=== PATIENT | female | born 1965 | race Caucasian/White ===

== ENCOUNTER 2019-08-26 17:48 | Inpatient (IN) ==
[2019-08-26] MEDS ORDERED: Acetaminophen 325 MG TABLET PO PRN (22:01)
[2019-08-26] MEDS ORDERED: Ondansetron 4 MG/2 ML VIAL IVP PRN (22:01)
[2019-08-26] MEDS ORDERED: Naloxone 0.4 MG/ML INJ IVP PRN (22:01)
[2019-08-26] MEDS ORDERED: Nicotine 14 MG PATCH.TD24 TD PRN (22:16)
[2019-08-26] MEDS: *HR* HYDROcodone/Acet 5/325 mg TABLET PO PRN (22:23)
[2019-08-26] MEDS: *HR* Heparin 5,000 UNIT/ML VIAL SQ SCH (22:26)
[2019-08-26] MEDS ORDERED: *HR* Heparin 5,000 UNIT/ML VIAL SQ SCH (22:26)
[2019-08-27] MEDS ORDERED: 0.9 % Sodium Chloride 1,000 ML IVC SCH (00:05)
[2019-08-27 02:28] LABS: Basophils % 0.4 %; Eosinophils # 0.2 K/mcL (0.0-0.6); Eosinophils % 2.5 %; Hematocrit 36.2 % (35.3-44.9); Hemoglobin 11.8 g/dL (11.5-15.4); Immature Granulocytes % 0.3 % (0-4); Lymphocytes # 3.4 K/mcL (0.6-4.6); Lymphocytes % 49.6 %; Mean Corpuscular HGB Conc 32.6 g/dL (31.6-35.5); Mean Corpuscular Hemoglobin 31.1 pg (28.0-33.3); Mean Corpuscular Volume 95.5 fL (83.0-100.0); Mean Platelet Volume 9.1 fL (9.4-12.4); Monocytes # 0.7 K/mcL (0.0-1.3); Neutrophils # 2.6 K/mcL (1.6-8.9); Platelet Count 365 K/mcL (140-400); Red Blood Count 3.79 M/mcL (3.82-4.97); Red Cell Distribution Width 12.2 % (11.5-14.5); Segmented Neutrophils % 37.2 %; White Blood Count 6.9 K/mcL (4.3-11.1)
[2019-08-27 02:48] LABS: Albumin 3.6 g/dL (3.5-5.7); Albumin/Globulin Ratio 1.6 (1.1-2.2); Bilirubin,Total 0.3 mg/dL (0.3-1.0); Calcium 8.8 mg/dL (8.6-10.3); Globulin 2.2 g/dL (2.4-3.5); Magnesium 1.9 mg/dL (1.6-2.6); Potassium 4.2 mEq/L (3.5-5.1); Total Protein 5.8 g/dL (6.4-8.9)
[2019-08-27] MEDS ORDERED: *HR* Heparin 5,000 UNIT/ML VIAL SQ SCH (06:00)
[2019-08-27] MEDS: *HR* HYDROcodone/Acet 5/325 mg TABLET PO PRN ×2 (06:40→19:57)
[2019-08-27] MEDS ORDERED: VILAZODONE HCL PO SCH (09:00)
[2019-08-27] MEDS ORDERED: QUEtiapine Fumarate 300 MG TABLET PO SCH (09:00)
[2019-08-27] MEDS ORDERED: lamoTRIgine 100 MG TABLET PO SCH (09:00)
[2019-08-27] MEDS ORDERED: Gabapentin 300 MG CAPSULE PO ONE ×2 (12:20→13:00)
[2019-08-27] MEDS ORDERED: Dexamethasone 4 MG/ML VIAL ONE ×2 (12:55→13:58)
[2019-08-27] MEDS ORDERED: Propofol 500 MG/50 ML INFUS..BTL ONE (12:55)
[2019-08-27] MEDS ORDERED: Ondansetron 4 MG/2 ML VIAL ONE (12:55)
[2019-08-27] MEDS ORDERED: Lidocaine -MPF 2% 2 ML VIAL ONE (12:55)
[2019-08-27] MEDS ORDERED: Tranexamic Acid 1,000 MG/10 ML VIAL ONE (13:00)
[2019-08-27] MEDS ORDERED: CeFAZolin Syr 2,000MG/20 ML 2,000 MG/20 ML SYRINGE IVPB ONE (13:02)
[2019-08-27] MEDS ORDERED: Albuterol 2.5 MG/3 ML NEBULIZER IH ONE (13:03)
[2019-08-27] MEDS ORDERED: *HR* Midazolam HCl 2 MG/2 ML VIAL ONE (13:23)
[2019-08-27] MEDS ORDERED: *HR* FentaNYL (PF) 100 MCG/2 ML VIAL ONE (13:25)
[2019-08-27] MEDS ORDERED: Ethanol\\Acetic Acid\\Na Ace\\Ben 1,000 ML IRRIG.SOLN IR ONE (13:26)
[2019-08-27] MEDS ORDERED: Acetaminophen IV 1,000 MG/100 ML INFUS..BTL ONE (13:34)
[2019-08-27] MEDS ORDERED: *HR* HYDROmorphone (PF) 1 MG/ML SYRINGE IVP PRN (13:56)
[2019-08-27] MEDS ORDERED: Ondansetron 4 MG/2 ML VIAL IVP ONE (13:56)
[2019-08-27] MEDS ORDERED: *HR* OxyCODONE Immed Rel 5 MG TABLET PO PRN (13:56)
[2019-08-27] MEDS ORDERED: *HR* HYDROMORPHONE 2 MG/ML VIAL ONE (14:07)
[2019-08-27] MEDS ORDERED: *HR* Succinylcholine 200 MG/10 ML VIAL IVP ONE (14:26)
[2019-08-27 16:34] LABS: Hematocrit 36.3 % (35.3-44.9); Hemoglobin 12.2 g/dL (11.5-15.4)
[2019-08-27] MEDS ORDERED: Sennosides 8.6 MG TABLET PO PRN (16:53)
[2019-08-27] MEDS ORDERED: Acetaminophen 325 MG TABLET PO PRN (16:53)
[2019-08-27] MEDS ORDERED: Nicotine 14 MG PATCH.TD24 TD PRN (16:53)
[2019-08-27] MEDS ORDERED: MOM Conc 10 ML UD.LIQ PO PRN (16:53)
[2019-08-27] MEDS ORDERED: Ondansetron 4 MG/2 ML VIAL IVP PRN (16:53)
[2019-08-27] MEDS ORDERED: Naloxone 0.4 MG/ML INJ IVP PRN ×2 (16:53)
[2019-08-27] MEDS ORDERED: *HR* Promethazine 25 MG/ML VIAL IVP PRN (16:53)
[2019-08-27] MEDS: *HR* Heparin 5,000 UNIT/ML VIAL SQ SCH (19:23)
[2019-08-27] MEDS: Ascorbic Acid 500 MG TABLET PO SCH (19:56)
[2019-08-27] MEDS: Ringers Solution, Lactated 1,000 ML IVC SCH (21:38)
[2019-08-27] MEDS: *HR* OxyCODONE Immed Rel 5 MG TABLET PO PRN (21:38)
[2019-08-27] MEDS: ceFAZolin 2,000 MG in 0.9 % Sodium Chloride 100 ML IVPB SCH (21:39)
[2019-08-28] MEDS: Ringers Solution, Lactated 1,000 ML IVC SCH (05:15)
[2019-08-28] MEDS: ceFAZolin 2,000 MG in 0.9 % Sodium Chloride 100 ML IVPB SCH (05:15)
[2019-08-28 05:40] LABS: Hematocrit 30.9 % (35.3-44.9); Hemoglobin 10.5 g/dL (11.5-15.4); Mean Corpuscular Hemoglobin 31.6 pg (28.0-33.3); Mean Corpuscular Volume 93.1 fL (83.0-100.0); Mean Platelet Volume 8.9 fL (9.4-12.4); Platelet Count 350 K/mcL (140-400); Red Blood Count 3.32 M/mcL (3.82-4.97); Red Cell Distribution Width 12.1 % (11.5-14.5); White Blood Count 9.6 K/mcL (4.3-11.1)
[2019-08-28 05:54] LABS: BUN/Creatinine Ratio 25 (6-26); Blood Urea Nitrogen 18 mg/dL (6-20); Calcium 8.8 mg/dL (8.6-10.3); Carbon Dioxide 25 mEq/L (23-29); Chloride 107 mEq/L (98-107); Glucose 123 mg/dL (70-105); Osmolality,Calculated 285 (280-300); Potassium 4.9 mEq/L (3.5-5.1); Sodium 136 mEq/L (136-145); eGFR For African Americans > 60 (> 60); eGFR For Non-African Americans > 60 (> 60)
[2019-08-28] MEDS: *HR* HYDROcodone/Acet 5/325 mg TABLET PO PRN (06:48)
[2019-08-28] MEDS: lamoTRIgine 100 MG TABLET PO SCH (09:33)
[2019-08-28] MEDS: Aspirin Enteric Coated 81 MG Tablet PO SCH (09:33)
[2019-08-28] MEDS: Ascorbic Acid 500 MG TABLET PO SCH ×2 (09:33→16:06)
[2019-08-28] MEDS: Multivit/Ca/Min/Fe/FA 1 TAB TABLET PO SCH (09:33)
[2019-08-28] MEDS ORDERED: *HR* Rivaroxaban 10 MG TABLET PO SCH (13:15)
[2019-08-28] MEDS: *HR* Rivaroxaban 10 MG TABLET PO SCH (16:06)
[2019-08-28] MEDS: *HR* OxyCODONE Immed Rel 5 MG TABLET PO PRN (16:06)
[2019-08-29 05:47] LABS: Hematocrit 29.5 % (35.3-44.9); Hemoglobin 9.7 g/dL (11.5-15.4)
[2019-08-29 06:07] LABS: Calcium 8.5 mg/dL (8.6-10.3); Phosphorous 3.5 mg/dL (2.7-4.5)
[2019-08-29] MEDS: *HR* HYDROcodone/Acet 5/325 mg TABLET PO PRN (09:17)
[2019-08-29] MEDS: *HR* Rivaroxaban 10 MG TABLET PO SCH (09:53)
[2019-08-29] MEDS: Multivit/Ca/Min/Fe/FA 1 TAB TABLET PO SCH (09:53)
[2019-08-29] MEDS: Aspirin Enteric Coated 81 MG Tablet PO SCH (09:53)
[2019-08-29] MEDS: lamoTRIgine 100 MG TABLET PO SCH (09:54)
[2019-08-29] MEDS: Ascorbic Acid 500 MG TABLET PO SCH (09:54)
[2019-08-29 10:46] VITALS: BP 99/66
== END 2019-08-29 12:05 | disposition home or self-care (01) | DRG 301 ==
LOC: 3NENU → SUATTDRO 19:13
PROVIDERS: ADMIT Student in an Organized Health Care Education/Training Program; ATTEND Internal Medicine